=== PATIENT | female | born 1960 | race Caucasian/White ===

== ENCOUNTER 2017-08-31 20:30 | Inpatient (IN) | payer BC ==
[~2017-08-31] VITALS: Ht 162.6 cm; Wt 81.0 kg
[~2017-08-31 20:30] MED LIST: NOHOMEMEDS
[2017-08-31 21:12] LABS: HEMATOCRIT 45.8 % (36.0-46.0); HEMOGLOBIN 16.2 G/DL (11.9-15.5); MCH 33.2 PG (29.0-34.0); MCHC 35.4 G/DL (30.0-36.0); MCV 93.9 FL (83-99); PLATELET COUNT 223 K/uL (156-360); RBC DIS.WIDTH-CV 13.4 % (11.8-14.6); RBC DIS.WIDTH-SD 46.3 % (39-53); RED BLOOD COUNT 4.88 M/uL (3.80-5.20)
[2017-08-31 21:22] LABS: CHLORIDE 106 mEq/L (99-109); POTASSIUM 4.2 mEq/L (3.7-5.4); SODIUM 141 mEq/L (136-147)
[2017-08-31 21:24] LABS: GLUCOSE 103 mg/dL (70-99)
[2017-08-31 21:28] LABS: CREATININE 0.8 mg/dL (0.6-1.3); GFR ESTIMATE (CALCULATED) > 59 mL/min/
[2017-08-31 21:29] LABS: UREA NITROGEN (BUN) 20 mg/dL (9-23)
[2017-08-31 21:34] LABS: TROP-I INTERPRETATION POSITIVE
[2017-08-31 21:37] LABS: TROPONIN-I 0.76 ng/mL (0.0-0.30)
[2017-08-31] MEDS ORDERED: SUMATRIPTAN SU100 MG PO (22:11)
[2017-08-31] MEDS ORDERED: COZAAR100 MG PO (22:12)
[2017-08-31] MEDS ORDERED: BAYER BACK & B1 EACH PO (22:14)
[2017-08-31 22:22] LABS: PTT 29.2 SEC (25-37)
[2017-09-01 01:35] VITALS: BP 110/69
[2017-09-01 05:19] LABS: HEMATOCRIT 44.8 % (36.0-46.0); HEMOGLOBIN 15.2 G/DL (11.9-15.5); MCH 31.8 PG (29.0-34.0); MCHC 33.9 G/DL (30.0-36.0); MCV 93.7 FL (83-99); PLATELET COUNT 220 K/uL (156-360); RBC DIS.WIDTH-CV 13.3 % (11.8-14.6); RBC DIS.WIDTH-SD 46.3 % (39-53); RED BLOOD COUNT 4.78 M/uL (3.80-5.20); WHITE BLOOD COUNT 9.8 K/uL (4.1-10.2)
[2017-09-01 05:35] VITALS: BP 98/63
[2017-09-01 05:47] LABS: TROP-I INTERPRETATION POSITIVE; TROPONIN-I 0.74 ng/mL (0.0-0.30)
[2017-09-01 07:13] LABS: ALBUMIN 3.5 G/DL (3.2-4.8); ALKALINE PHOSPHATASE 61 IU/L (3-129); ALT (GPT) 12 IU/L (3-49); AST (GOT) 12 IU/L (2-34); CHLORIDE 109 MEQ/L (99-109); CREATININE 0.6 MG/DL (0.6-1.3); GFR ESTIMATE (CALCULATED) > 59 mL/min/; GLUCOSE 98 mg/dL (70-99); POTASSIUM 3.9 MEQ/L (3.7-5.4); SODIUM 142 MEQ/L (136-147); TOTAL BILIRUBIN 0.4 MG/DL (0.0-1.0); TOTAL PROTEIN 5.9 G/DL (6.4-8.3); UREA NITROGEN (BUN) 17 mg/dL (9-23)
[2017-09-01 07:20] VITALS: BP 106/59
[2017-09-01 09:09] LABS: PTT 102.8 SEC (25-37)
[2017-09-01 16:45] VITALS: BP 129/79
[2017-09-01 19:23] VITALS: BP 133/79
[2017-09-02 01:21] VITALS: BP 126/70
[2017-09-02 05:05] VITALS: BP 131/81
[2017-09-02] MEDS ORDERED: CLOPIDOGREL75 MG PO (07:06)
[2017-09-02] MEDS ORDERED: ATORVASTATIN CA40 MG PO (07:06)
[2017-09-02] MEDS ORDERED: ASPIR-LOW81 MG PO (07:07)
[2017-09-02 07:50] VITALS: BP 129/73
[2017-09-02] MEDS ORDERED: LOPRESSOR25 MG PO (13:25)
== END 2017-09-02 14:30 | disposition home or self-care (01) | DRG 247 ==
LOC: EME 20:30 → EDOF 23:13 → 4EAST 23:13 → ENRESERV 23:14 → 4EAST 09-01 01:34
PROVIDERS: Emergency Medicine; Hospitalist
DX: I21.4 Non-ST elevation (NSTEMI) myocardial infarction (principal); I23.7 Postinfarction angina; I25.10 Atherosclerotic heart disease of native coronary artery without angina pectoris; I10 Essential (primary) hypertension; G43.909 Migraine, unspecified, not intractable, without status migrainosus; R00.1 Bradycardia, unspecified; F17.210 Nicotine dependence, cigarettes, uncomplicated; Z80.7 Family history of other malignant neoplasms of lymphoid, hematopoietic and related tissues
CPT/HCPCS: 71046; 71275; 74174; 80048; 80053; 84484; 85027; 85347; 85379; 85610; 85730; 93005; 93306; 99281; 99285; C1725; C1769; C1874; C1887; J1644; J2250; J3010; J3246; J7030